=== PATIENT | female | born 1985 | race Caucasian/White ===

== ENCOUNTER 2023-07-11 13:43 | Outpatient (AMB) | payer OTHER, SELFPAY ==
--- NOTE | 2023-07-11 13:48 | MHC.PC.OV ---
Vital Signs 07/11/23 13:55 Weight 182 lb 2 oz BP 98/68 Blood Pressure Location Lt brachial Position Sitting Respiration 12 Pulse 92 Pulse Source Pulse Oximeter Temp 98.5 F Temp Source Oral Pulse Oximetry (%) 96 Oxygen Delivery Method Room Air Intake Visit Reasons: Est Care Intake Note: New patient visit. Called the pharmacy and verified medicaton doses. 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 Allergies tioconazole [From Monistat 1 (tioconazole)] Allergy (Intermediate, Verified 07/11/23 13:49) swelling Monistat 1 Adverse Reaction (Unknown, Uncoded 02/11/18 00:00) worsens sx Medication List - Last Reconciled 07/11/23 by Deanne Jama PA-C bupropion HCl XL (Wellbutrin XL) 300 mg PO QAM lorazepam 0.5 mg PO BID PRN spironolactone 100 mg PO DAILY tretinoin 0.025% 1 appl topical BEDTIME ubrogepant (Ubrelvy) mg PO ONCE Tobacco use date assessed: 07/11/23 Dental Screening Dental Screen Date: 07/11/23 Did you have a dental visit in the last 12 months?: Yes Did you have a dental problem in the last 6 months where you did not have access to dental care?: No Was dental information given to patient?: Patient has dentist HPI Est Care HPI Details Patient is a 38-year-old female who presents today for a follow up/to establish care. She is transferring from [facility] with [facility]. Last seen by myself in April for a physical. labs at that time which were WNL. She has a significant past medical history of generalized anxiety disorder with panic attacks, acne and migraines. Pysch: She feels significantly better on wellbutrin. She states that this has worked much better compared to the Zoloft. She states that she is even lost a couple lb with it. No SI/HI. She states that her anxiety is very well managed. She uses lorazepam 0.5 mg maybe once a month for panic attacks. Neuro: very well controlled with ubrevly. Derm: follows with derm for acne. She is on spironactone and tretinoin. States she is well controlled. 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: [facility] Medical History (Updated 07/11/23 @ 14:41 by Deanne Jama PA-C) Migraines Acne Generalized anxiety disorder with panic attacks Social History Housing: House Patient Tobacco Use Status: Never used Tobacco e-Cigarette/Vaping Use: Never Used Second Hand Smoke Exposure: No service: Yes Current occupation: [employer] Current occupational exposures/hazards: No Cognitive needs: No Hearing needs: No Vision needs: No Questionnaire PHQ-9 Over the last 2 weeks, how often have you been bothered by any of the following problems? 1. Little interest or pleasure in doing things: not at all 2. Feeling down, depressed, or hopeless: not at all 3. Trouble falling or staying asleep, or sleeping too much: several days 4. Feeling tired or having little energy: not at all 5. Poor appetite or overeating: not at all 6. Feeling bad about yourself - or that you are a failure or have let yourself or your family down: not at all 7. Trouble concentrating on things, such as reading the newspaper or watching television: several days 8. Moving or speaking so slowly that other people could have noticed. Or the opposite - being so fidgety or restless that you have been moving around a lot more than usual: not at all 9. Thoughts that you would be better off or of hurting yourself in some way: not at all Total score: 2 Depression Screening Interpretation: Positive Depression Screening Follow-up: Existing condition and In treatment Depression Screening Done: Yes 95025 - PHQ-9 Billing: Yes Source: Developed by Drs. Melchor Ramey, Ria Odell, Leonard Becker and colleagues, with an educational elisa from [employer]. Thrive Questionnaire Date Thrive assessed: 07/11/23 I am a: Patient What is your living situation today?: I have a steady place to live Within the past 12 months, did the food you bought not last and you didn't have the money to get more?: Never true Within the past 12 months, did you worry whether your food would run out before you got money to buy more?: Never true Do you have trouble paying for medicines?: No Do you have trouble getting transportation to medical appointments?: No Do you have trouble paying your heating and electricity bill?: No Do you have trouble taking care of your child, family member or friend?: No Do you have trouble with day-to-day activities such as bathing, preparing meals, shopping, managing finances, etc.?: No Are you currently unemployed and looking for a job?: No Are you interested in more education?: No Please select the resources that you would like help with: None Currently or been in a relationship where the following occur: no concerns reported THRIVE Score: 0 AUDIT C Alcohol Use Questionnaire (AUDIT-C) 1. How often do you have a drink containing alcohol?: Monthly or less 2. How many drinks containing alcohol do you have on a typical day when you are drinking?: 1 or 2 3. How often do you have six or more drinks on one occasion?: Never Total Score: 1 JOAQUIN-7 AMB Questionnaire JOAQUIN-7 Date JOAQUIN - 7 assessed: 07/11/23 Feeling nervous, anxious, or on edge: 1 = Several days Not being able to stop or control worryin = Several days Worrying too much about different things: 1 = Several days Trouble relaxin = Several days Being so restless that it is hard to sit still: 0 = Not at all Becoming easily annoyed or irritable: 0 = Not at all Feeling afraid as if something awful might happen: 0 = Not at all Total JOAQUIN-7 score (0-4 normal; 5-9 mild; 10-14 moderate; 15-21 severe): 4 Source: Developed by Drs. Melchor Ramey, Ria Odell, Leonard Becker and colleagues, with an educational elisa from [employer]. Physical exam (Primary Care) Vital Signs: Last Vital Signs Temp 98.5 F 07/11/23 13:55 Pulse 92 07/11/23 13:55 Resp 12 07/11/23 13:55 BP 98/68 07/11/23 13:55 Pulse Ox 96 07/11/23 13:55 Oxygen Delivery Method Room Air 07/11/23 13:55 Tobacco/Smoking Status: Tobacco use Status Tobacco use date assessed 07/11/23 07/11/23 13:53 Patient Tobacco Use Status Never used Tobacco 07/11/23 13:53 e-Cigarette/Vaping Use Never Used 07/11/23 13:53 PHQ-9: PHQ-9 Score PHQ-9: Total score 2 07/11/23 14:15 Depression Screening Interpretation: Positive Depression Screening Follow-up: Existing condition and In treatment Thrive Assessment: Date of Thrive Assessment Date Thrive assessed 07/11/23 07/11/23 14:01 Currently or been in a relationship where the following occur: no concerns reported Const Orientation/consciousness: patient oriented x3 HENMT Ears: hearing grossly normal bilaterally Neck Thyroid: Thyroid normal Lymphatic: no lymphadenopathy noted Resp Auscultation: clear to auscultation bilaterally Cardio Rate: regular rate Rhythm: regular rhythm Heart sounds: S1 normal heart sound present and S2 normal heart sound present GI Inspection: Yes normal to inspection Palpation (GI): Soft to palpation and Other GI palpation findings present (nontender, no cva tenderness) Auscultation: normoactive bowel sounds Rectal Exam - Female: deferred Skin General skin exam: no rashes or lesions noted Neuro General: patient oriented x3, gait normal and no focal motor deficits Assessment and Plan Assessment & Plan (1) Generalized anxiety disorder with panic attacks: Code(s): F41.1 - Generalized anxiety disorder; F41.0 - Panic disorder [episodic paroxysmal anxiety] Plan: does not need refills today. continue current treatment plan. (2) Acne: Code(s): L70.9 - Acne, unspecified Qualifiers: Acne type: acne vulgaris Qualified Code(s): L70.0 - Acne vulgaris Plan: following with derm (3) Migraines: Code(s): G43.909 - Migraine, unspecified, not intractable, without status migrainosus Qualifiers: Migraine type: unspecified Status migrainosus presence: without status migrainosus Intractability: not intractable Qualified Code(s): G43.909 - Migraine, unspecified, not intractable, without status migrainosus Plan: well managed (4) Encounter to establish care: Code(s): Z76.89 - Persons encountering health services in other specified circumstances Plan: hm reviewed. records requested. Plan f/u 6 months or sooner prn. pt understands and agrees with the plan. Coding Level of Care Code Est Pt Level 4 (23604) Diagnoses Generalized anxiety disorder with panic attacks F41.1; F41.0 Acne vulgaris L70.0 Acne type: acne vulgaris Migraine without status migrainosus, not intractable, unspecified migraine type G43.909 Migraine type: unspecified Status migrainosus presence: without status migrainosus Intractability: not intractable Encounter to establish care Z76.89
[2023-07-11 13:55] VITALS: BP 98/68; PULSE 92; RESP 12; TEMP 36.9; O2SAT 96
== END 2023-07-11 14:37 | disposition home or self-care (01) ==
PROVIDERS: PCP Nurse Practitioner Family; Visit Provider Physician Assistant
DX: F41.1 Generalized anxiety disorder (principal); F41.0 Panic disorder [episodic paroxysmal anxiety]; L70.0 Acne vulgaris; G43.909 Migraine, unspecified, not intractable, without status migrainosus
CPT/HCPCS: 99214

== ENCOUNTER 2024-02-28 13:46 | Outpatient (AMB) | payer OTHER, SELFPAY ==
--- NOTE | 2024-02-28 13:57 | A.OFFPC_ITS ---
Vital Signs 02/28/24 14:01 BP 106/70 Blood Pressure Location Rt brachial Position Sitting Pulse 99 Pulse Source Pulse Oximeter Temp 98.6 F Temp Source Oral Pulse Oximetry (%) 99 Oxygen Delivery Method Room Air Intake Visit Reasons: Headache and weakness Intake Note: Exposed to chemical at work on Sunday and now having sxs. Headache, weakness, rash on face, and confusion. 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 Allergies tioconazole [From Monistat 1 (tioconazole)] Allergy (Intermediate, Verified 02/28/24 13:58) swelling Monistat 1 Adverse Reaction (Unknown, Uncoded 02/28/24 13:58) worsens sx Medication List - Last Reconciled 02/28/24 by Deanne Jama PA-C amoxicillin-pot clavulanate 875-125 mg 1 tab PO BID bupropion HCl XL (Wellbutrin XL) 300 mg PO QAM lorazepam 0.5 mg PO BID PRN 30 days methylprednisolone (Medrol (Zechariah)) PO PER PKG DIR for 6 days spironolactone 100 mg PO DAILY tretinoin 0.025% 1 appl topical BEDTIME ubrogepant (Ubrelvy) 100 mg PO ONCE PRN Tobacco use date assessed: 07/11/23 Dental Screening Dental Screen Date: 07/11/23 HPI Headache and weakness HPI Details Patient is a 38-year-old female who presents today for a follow up. Psych: Anxiety is currently well managed Wellbutrin 300 mg and lorazepam p.r.n.. Neuro: Migraines managed with ubrelvy. She states back in December she was getting a weird odor in her building at work and then ultimately last week they realized there was an issue with gas . She states that this has been triggering a huge increase in her headache. Normally they are well managed but over the last few months they have increased in frequency. HEENT: She states also over the last week or so she has had sinus pain and pressure, especially on the left side. She states that she has been congested nasally and as frequently. No fevers or chills hurts she served pink she can like her ears are filled as well. Derm: Acne managed with spironolactone and tretinoin. 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 Current occupational exposures/hazards: No Cognitive needs: No Hearing needs: No Vision needs: No Questionnaire PHQ-9 Over the last 2 weeks, how often have you been bothered by any of the following problems? 1. Little interest or pleasure in doing things: not at all 2. Feeling down, depressed, or hopeless: not at all 3. Trouble falling or staying asleep, or sleeping too much: several days 4. Feeling tired or having little energy: not at all 5. Poor appetite or overeating: not at all 6. Feeling bad about yourself - or that you are a failure or have let yourself or your family down: not at all 7. Trouble concentrating on things, such as reading the newspaper or watching television: several days 8. Moving or speaking so slowly that other people could have noticed. Or the opposite - being so fidgety or restless that you have been moving around a lot more than usual: not at all 9. Thoughts that you would be better off or of hurting yourself in some way: not at all Total score: 2 Source: Developed by Drs. Melchor Ramey, Ria Odell, Leonard Becker and colleagues, with an educational elisa from [employer]. Thrive Questionnaire Date Thrive assessed: 02/28/24 I am a: Patient What is your living situation today?: I have a steady place to live Within the past 12 months, did the food you bought not last and you didn't have the money to get more?: Never true Within the past 12 months, did you worry whether your food would run out before you got money to buy more?: Never true Do you have trouble paying for medicines?: No Do you have trouble getting transportation to medical appointments?: No Do you have trouble paying your heating and electricity bill?: No Do you have trouble taking care of your child, family member or friend?: No Do you have trouble with day-to-day activities such as bathing, preparing meals, shopping, managing finances, etc.?: No Are you currently unemployed and looking for a job?: No Are you interested in more education?: No Please select the resources that you would like help with: None Currently or been in a relationship where the following occur: No concerns reported THRIVE Score: 0 AUDIT C Alcohol Use Questionnaire (AUDIT-C) 1. How often do you have a drink containing alcohol?: Monthly or less 2. How many drinks containing alcohol do you have on a typical day when you are drinking?: 1 or 2 3. How often do you have six or more drinks on one occasion?: Never Total Score: 1 JOAQUIN-7 AMB Questionnaire JOAQUIN-7 Date JOAQUIN - 7 assessed: 07/11/23 Feeling nervous, anxious, or on edge: 1 = Several days Not being able to stop or control worryin = Several days Worrying too much about different things: 1 = Several days Trouble relaxin = Several days Being so restless that it is hard to sit still: 0 = Not at all Becoming easily annoyed or irritable: 0 = Not at all Feeling afraid as if something awful might happen: 0 = Not at all Total JOAQUIN-7 score (0-4 normal; 5-9 mild; 10-14 moderate; 15-21 severe): 4 Source: Developed by Drs. Melchor Ramey, Ria Odell, Leonard Becker and colleagues, with an educational elisa from [employer]. Physical exam (Primary Care) Vital Signs: Last Vital Signs Temp 98.6 F 02/28/24 14:01 Pulse 99 02/28/24 14:01 BP 106/70 02/28/24 14:01 Pulse Ox 99 02/28/24 14:01 Oxygen Delivery Method Room Air 02/28/24 14:01 Tobacco/Smoking Status: Tobacco use Status Tobacco use date assessed 07/11/23 02/28/24 14:02 Patient Tobacco Use Status Never used Tobacco 02/28/24 14:02 e-Cigarette/Vaping Use Never Used 02/28/24 14:02 PHQ-9: PHQ-9 Score PHQ-9: Total score 2 02/28/24 14:02 Thrive Assessment: Date of Thrive Assessment Date Thrive assessed 02/28/24 02/28/24 14:02 Currently or been in a relationship where the following occur: No concerns reported Const Orientation/consciousness: patient oriented x3 HENMT Other: TMs dome-shaped a small air-fluid levels bilaterally. Nasal mucosa erythematous and edematous. There is maxillary sinus tenderness present. Ears: hearing grossly normal bilaterally Neck Thyroid: Thyroid normal Lymphatic: no lymphadenopathy noted Resp Auscultation: clear to auscultation bilaterally Cardio Rate: regular rate Rhythm: regular rhythm Heart sounds: S1 normal heart sound present and S2 normal heart sound present GI Inspection: Yes normal to inspection Palpation (GI): Soft to palpation and Other GI palpation findings present (nontender, no cva tenderness) Auscultation: normoactive bowel sounds Rectal Exam - Female: deferred Skin General skin exam: no rashes or lesions noted Neuro General: patient oriented x3, gait normal and no focal motor deficits Coding Level of Care Code Est Pt Level 4 (44244) Complex EM visit Add On G2211 Diagnoses Migraine without status migrainosus, not intractable, unspecified migraine type G43.909 Migraine type: unspecified Status migrainosus presence: without status migrainosus Intractability: not intractable Bacterial sinusitis J32.9; B96.89 Assessment & Plan Assessment & Plan (1) Migraines: Code(s): G43.909 - Migraine, unspecified, not intractable, without status migrainosus Category: Medical Qualifiers: Migraine type: unspecified Status migrainosus presence: without status migrainosus Intractability: not intractable Qualified Code(s): G43.909 - Migraine, unspecified, not intractable, without status migrainosus Plan: Work go provided as she does have many environmental triggers of her migraines. She will work remote twice a week to see if this helps. Her job does have a remote option. (2) Bacterial sinusitis: Code(s): J32.9 - Chronic sinusitis, unspecified; B96.89 - Other specified bacterial agents as the cause of diseases classified elsewhere Category: Medical Plan: We will start on Augmentin and a Medrol Dosepak. Discussed risks and benefits and adverse effects of this medication. Plan Labs ordered. Follow up short term. Sooner if needed. Patient understands and agrees with the plan. Orders: Orders TSH reflex Free T4 Today B96.89 - Other specified bacterial agents as the cause of diseases classified elsewhere, G43.909 - Migraine, unspecified, not intractable, without status migrainosus, J32.9 - Chronic sinusitis, unspecified Lipid Panel Today B96.89 - Other specified bacterial agents as the cause of diseases classified elsewhere, G43.909 - Migraine, unspecified, not intractable, without status migrainosus, J32.9 - Chronic sinusitis, unspecified Complete Blood Count Auto Diff Today B96.89 - Other specified bacterial agents as the cause of diseases classified elsewhere, G43.909 - Migraine, unspecified, not intractable, without status migrainosus, J32.9 - Chronic sinusitis, un specified Comprehensive [place]. Panel Fast Today B96.89 - Other specified bacterial agents as the cause of diseases classified elsewhere, G43.909 - Migraine, unspecified, not intractable, without status migrainosus, J32.9 - Chronic sinusitis, unspecified Medications: New methylprednisolone (Medrol (Zechariah)) PO PER PKG DIR for 6 days 21 ea 0RF amoxicillin-pot clavulanate 875-125 mg 1 tab PO BID 20 tabs 0RF
[2024-02-28 14:01] VITALS: BP 106/70; PULSE 99; TEMP 37; O2SAT 99
--- OUTSIDE RECORDS SUMMARY | 2024-03-05 02:41 | XMS_ITS ---
Author Name [facility] Organization Unknown History of Medication Use Medication Directions Dispensed Refills Start Date End Date Stat us LORazepam (ATIVAN) 0.5 MG tablet Take 0.5 mg by mouth 3 (three) times a day as needed. anxiety 06/20/2022 active Ubrelvy 100 MG tablet 06/20/2022 active spironolactone (ALDACTONE) 50 MG tablet Take 50 mg by mouth daily. 06/20/2022 active LORazepam (ATIVAN) 0.5 MG tablet Take 0.5 mg by mouth 3 (three) times a day as needed. anxiety 06/20/2022 active sertraline (ZOLOFT) 50 MG tablet Take 50 mg by mouth daily. 06/20/2022 active doxycycline (MONODOX) 100 MG capsule Take 1 capsule (100 mg total) by mouth 2 (two) times a day. 06/20/2022 active ketoconazole (NIZORAL) 2 % shampoo APPLY 2-3 TIMES WEEKLY 06/20/2022 active Problems Problem Status Onset Date Problem Type Date of Resoluti on Source Bacterial sinusitis [facility]
== END 2024-02-28 16:48 | disposition home or self-care (01) ==
PROVIDERS: PCP Nurse Practitioner Family; Visit Provider Physician Assistant
DX: G43.909 Migraine, unspecified, not intractable, without status migrainosus (principal); J32.9 Chronic sinusitis, unspecified; B96.89 Other specified bacterial agents as the cause of diseases classified elsewhere

== ENCOUNTER → 2024-02-28 13:46 | Outpatient (BNVA) | payer OTHER, SELFPAY | PROVIDERS: PCP Nurse Practitioner Family; Visit Provider Physician Assistant ==

== ENCOUNTER 2024-02-29 10:24 | Outpatient (REF) | payer OTHER, SELFPAY ==
[2024-02-29 17:48] LABS: MANUAL DIFF FLAG NO
[2024-02-29 17:52] LABS: Basophils Absolute Auto 0.1 X10*3/uL (0.0-0.2); Basophils Percent Auto 0.9 % (0-2); Eosinophils Absolute Auto 0.1 X10*3/uL (0.0-0.4); Eosinophils Percent Auto 0.9 % (0-4); Hematocrit 43.4 % (37.0-47.0); Hemoglobin 14.9 g/dl (12.0-16.0); Imm Gran Abs Auto 0.02 X10*3/uL (0.00-0.03); Imm Gran Pct Auto 0.2 % (0.0-0.4); Lymphocytes Absolute Auto 2.5 X10*3/uL (1.2-4.9); Mean Corpuscular HGB Conc 34.3 g/dl (31.0-35.0); Mean Corpuscular Hemoglobin 31.4 pg (27.0-33.0); Mean Corpuscular Volume 91.6 fL (80.0-98.0); Mean Platelet Volume 9.6 fL (9.4-12.3); Monocytes Absolute Auto 0.3 X10*3/uL (0.1-1.2); Monocytes Percent Auto 3.3 % (2-11); Neutrophils Absolute Auto 5.4 x10*3/uL (2.0-8.3); Neutrophils Percent Auto 64.7 % (45-73); Platelet Count 354 X10*3/uL (160-400); Red Blood Count 4.74 X10*6/uL (4.20-5.50); Red Cell Distribution Width 11.9 % (11.0-16.0); White Blood Count 8.4 X10*3/uL (4.8-10.8)
[2024-02-29 18:14] LABS: Alanine Aminotransferase 22 U/L (0-31); Albumin Level 4.5 g/dL (3.5-5.0); Alkaline Phosphatase 54 U/L (39-117); Anion Gap 12 (12-20); Aspartate Amino Transferase 18 U/L (5-31); Bilirubin Total 0.4 mg/dL (0.0-1.0); Blood Urea Nitrogen 11 mg/dL (9-16); Calcium 9.5 mg/dL (8.4-10.2); Carbon Dioxide 27 mmol/L (22-29); Chloride 107 mmol/L (96-108); Cholesterol 159 mg/dL (<200); Estimated Glomerular Filt Rate > 60; Glucose Fasting 86 mg/dL (60-99); HDL Cholesterol 48 mg/dL (>40); LDL Cholesterol Calculated 94 mg/dL (<100); Potassium 3.6 mmol/L (3.3-5.1); Sodium 142 mmol/L (135-145); Total Protein 7.3 g/dL (6.5-8.0); Triglycerides 85 mg/dL (<150)
[2024-02-29 18:30] LABS: TSH reflex Free T4 1.43 uIU/mL (0.32-4.0)
== END 2024-02-29 10:25 | disposition home or self-care (01) ==
LOC: HO.WFDLDS 10:24
PROVIDERS: Visit Provider Physician Assistant
DX: G43.909 Migraine, unspecified, not intractable, without status migrainosus (principal); J32.9 Chronic sinusitis, unspecified; B96.89 Other specified bacterial agents as the cause of diseases classified elsewhere
CPT/HCPCS: 36415; 80053; 80061; 84443; 85025

== ENCOUNTER → 2024-04-30 07:51 | Outpatient (BNVA) | payer OTHER, SELFPAY | PROVIDERS: PCP Physician Assistant; Visit Provider Physician Assistant | DX: Z00.00 Encounter for general adult medical examination without abnormal findings (principal); G43.909 Migraine, unspecified, not intractable, without status migrainosus; F41.1 Generalized anxiety disorder; F41.0 Panic disorder [episodic paroxysmal anxiety] | CPT/HCPCS: 96127 ==

== ENCOUNTER 2024-10-15 14:48 | Outpatient (AMB) | payer OTHER, SELFPAY ==
--- NOTE | 2024-10-15 14:57 | A.OFFPC_ITS ---
Vital Signs 10/15/24 15:01 Height 5 ft 4 in Weight 129 lb BMI 22.1 BP 98/64 Blood Pressure Location Rt brachial Position Sitting Respiration 12 Pulse 87 Pulse Source Pulse Oximeter Temp 98.8 F Temp Source Oral Pulse Oximetry (%) 99 Oxygen Delivery Method Room Air Intake Visit Reasons: medcinie review Intake Note: Medication follow. Still having headaches and congestion due to HVAC at work Physician/Internist Required: No Allergies tioconazole (From Monistat 1 (tioconazole)) Allergy (Intermediate, Verified 04/30/24 08:09) swelling Monistat 1 Adverse Reaction (Unknown, Uncoded 04/30/24 08:09) worsens sx Medication List - Last Reconciled 10/15/24 by Deanne Jama PA-C amoxicillin-pot clavulanate 875-125 mg 1 tab PO Q12H bupropion HCl XL (Wellbutrin XL) 300 mg PO QAM fluconazole 150 mg PO Q3D 2 doses lorazepam 0.5 mg PO BID PRN 30 days minoxidil mg PO semaglutide (weight loss) 0.15 mg subcut QWEEK spironolactone 100 mg PO DAILY tretinoin 0.025% 1 appl topical BEDTIME triamcinolone acetonide (Nasacort) 2 sprays intranasal DAILY ubrogepant (Ubrelvy) 100 mg PO ONCE PRN Tobacco use date assessed: 07/11/23 Dental Screening Dental Screen Date: 07/11/23 HPI medcinie review HPI Details Patient is a 39-year-old female who presents today for a f/u. She has a significant past medical history of generalized anxiety disorder with panic attacks, acne and migraines HEENT: She is experiencing frequent sinus infections since working in this building. She says that they keep having issues with ventilation, hvac, and just overall structural issues that she thinks she is very sensitive to. She states there keeps being gas leaks intermittently and whenever this happens her sinuses get flared up and she gets headaches. She has had about 4 this year. She states that almost every day when she goes into the office she has sinus congestion and nasal congestion and when she gets home the symptoms resolve. She says for the last 2 weeks however she has had constant sinus pain and pressure. She states it is not getting better despite being on Flonase. General: she is on wegovy through a compound pharmacy through [employer] [facility] [employer]. she has lost 40 lbs in the past year. Pysch: She feels significantly better on wellbutrin. She states that this has worked much better compared to the Zoloft. No SI/HI. She states that her anxi ety is very well managed. She uses lorazepam 0.5 mg maybe once a month for panic attacks. Neuro: controlled with ubrevly. new work schedule is better for her being able to work remote twice a week to help limit the exposure to the environmental allergens Derm: follows with derm for acne. She is on spironactone and tretinoin. States she is well controlled. 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 [facility] Medical History (Updated 10/15/24 @ 15:10 by Deanne Jama PA-C) Migraines Acne Generalized anxiety disorder with panic attacks Social History Housing: House Patient Tobacco Use Status: Never used Tobacco e-Cigarette/Vaping Use: Never Used Second Hand Smoke Exposure: No service: Yes Current occupation: [employer] Current occupational exposures/hazards: No Cognitive needs: No Hearing needs: No Vision needs: No Questionnaire Thrive Questionnaire Date Thrive assessed: 04/23/24 I am a: Patient What is your living situation today?: I have a steady place to live Within the past 12 months, did the food you bought not last and you didn't have the money to get more?: Never true Within the past 12 months, did you worry whether your food would run out before you got money to buy more?: Never true Do you have trouble paying for medicines?: No Do you have trouble getting transportation to medical appointments?: No Do you have trouble paying your heating and electricity bill?: No Do you have trouble taking care of your child, family member or friend?: No Do you have trouble with day-to-day activities such as bathing, preparing meals, shopping, managing finances, etc.?: No Are you currently unemployed and looking for a job?: No Are you interested in more education?: No Please select the resources that you would like help with: None Currently or been in a relationship where the following occur: No concerns reported THRIVE Score: 0 JOAQUIN-7 AMB Questionnaire JOAQUIN-7 Date JOAQUIN - 7 assessed: 07/11/23 Source: Developed by Drs. Melchor Ramey, Ria Odell, Leonard Becker and colleagues, with an educational elisa from [employer]. Physical exam (Primary Care) Tobacco/Smoking Status: Tobacco use Status Tobacco use date assessed 07/11/23 04/30/24 08:11 Patient Tobacco Use Status Never used Tobacco 04/30/24 08:11 e-Cigarette/Vaping Use Never Used 04/30/24 08:11 Thrive Assessment: Date of Thrive Assessment Date Thrive assessed 04/23/24 04/30/24 08:11 Currently or been in a relationship where the following occur: No concerns reported Const Orientation/consciousness: patient oriented x3 HENMT Other: TMs noted to have small air-fluid levels bilaterally. Negative tug test bilaterally. Nasal mucosa erythematous and edematous. Purulent drainage noted. Maxillary sinus tenderness present. Ears: hearing grossly normal bilaterally Neck Thyroid: Thyroid normal Lymphatic: no lymphadenopathy noted Resp Auscultation: clear to auscultation bilaterally Cardio Rate: regular rate Rhythm: regular rhythm Heart sounds: S1 normal heart sound present and S2 normal heart sound present GI Inspection: Yes normal to inspection Palpation (GI): Soft to palpation and Other GI palpation findings present (nontender, no cva tenderness) Auscultation: normoactive bowel sounds Rectal Exam - Female: deferred Skin General skin exam: no rashes or lesions noted Neuro General: patient oriented x3, gait normal and no focal motor deficits Results Reviewed Results Reviewed: Laboratory Tests 02/29/24 13:23 WBC 8.4 RBC 4.74 Hgb 14.9 Hct 43.4 Plt Count 354 Sodium 142 Potassium 3.6 Chloride 107 Carbon Dioxide 27 Anion Gap 12 BUN 11 Creatinine 0.78 Estimated GFR > 60 Fasting Glucose 86 Calcium 9.5 Total Bilirubin 0.4 AST 18 ALT 22 Alkaline Phosphatase 54 Total Protein 7.3 Albumin 4.5 Triglycerides 85 Cholesterol 159 LDL Cholesterol, Calc 94 HDL Cholesterol 48 TSH 1.43 Coding Level of Care Code Est Pt Level 4 (64136) Complex EM visit Add On G2211 Diagnoses Generalized anxiety disorder with panic attacks F41.1; F41.0 Migraine without status migrainosus, not intractable, unspecified migraine type G43.909 Migraine type: unspecified Status migrainosus presence: without status migrainosus Intractability: not intractable Recurrent sinusitis J32.9 Assessment & Plan Assessment & Plan (1) Generalized anxiety disorder with panic attacks: Code(s): F41.1 - Generalized anxiety disorder; F41.0 - Panic disorder [episodic paroxysmal anxiety] Category: Medical Plan: Continue current regimen (2) Migraines: Code(s): G43.909 - Migraine, unspecified, not intractable, without status migrainosus Category: Medical Qualifiers: Migraine type: unspecified Status migrainosus presence: without status migrainosus Intractability: not intractable Qualified Code(s): G43.909 - Migraine, unspecified, not intractable, without status migrainosus Plan: As above. Work letter updated (3) Recurrent sinusitis: Code(s): J32.9 - Chronic sinusitis, unspecified Category: Medical Plan: Referral to Allergy and immunology. We will try Nasacort Does not tolerate most antihistamines as it induces anxiety. We will treat with Augmentin. Orders: Referrals Allergy & Immunology Referral J32.9 - Chronic sinusitis, unspecified Medications: New triamcinolone acetonide (Nasacort) administer into each nostril 2 sprays intranasal DAILY 16.9 mL 2RF amoxicillin-pot clavulanate 875-125 mg 1 tab PO Q12H 20 tabs 0RF Refilled fluconazole 150 mg PO Q3D 2 tabs 0RF 2 doses lorazepam 0.5 mg PO BID PRN 30 tabs 0RF anxiety 30 days
[2024-10-15 15:01] VITALS: BP 98/64; PULSE 87; RESP 12; TEMP 37.1; O2SAT 99; BMI 22.1
--- OUTSIDE RECORDS SUMMARY | 2024-10-15 15:23 | XMS_ITS ---
Author Name [facility] Organization Unknown History of Medication Use Medication Directions Dispensed Refills Start Date End Date Stat us nystatin (MYCOSTATIN) 150400 UNIT/ML suspension Take 5 mL (500,000 Units total) by mouth 4 (four) times a day. 07/19/2024 active buPROPion (WELLBUTRIN XL) 300 MG 24 hr tablet Take 300 mg by mouth every morning. 07/07/2024 active sertraline (ZOLOFT) 50 MG tablet Take 50 mg by mouth daily. 06/02/2022 active ketoconazole (NIZORAL) 2 % shampoo APPLY 2-3 TIMES WEEKLY 03/28/2022 active spironolactone (ALDACTONE) 50 MG tablet Take 50 mg by mouth daily. 03/28/2022 active semaglutide (OZEMPIC) (0.25 or 0.5 mg/dose pen) prefilled pen injection Inject under the skin once a week. active Allergies Allergen Reaction Severity Comment Documented Date Source Statu s MICONAZOLE HIVES 06/19/2022 [facility] active Problems Problem Status Onset Date Problem Type Date of Resoluti on Source Chronic sinusitis active 2024-07-19 ProblemAct [facility] Class 1 obesity active 2024-07-19 ProblemAct [facility] Sore throat active EncounterDiagnosisAct [facility] Anxiety active 2024-07-19 ProblemAct [facility] Migraine headache active 2024-07-19 ProblemAct [facility] History of MRSA infection active 2024-07-19 ProblemAct [facility] Oral thrush active EncounterDiagnosisAct [facility] Cold sore active 2024-07-19 ProblemAct [facility] Encounters Encounter Type Encounter Reason Primary Diagnosis Location Date Ambulatory Acute pharyngitis, unspecified Acute pharyngitis, unspecified [facility] 07/19/2024 Ambulatory Chronic sinusiti s, unspecified [facility] 06/19/2022 Care Team Organization Name Specialty Phone Email Start Date End Da te [facility] NO PCP Primary Care 07/19/2024 [facility] 06/19/2022 08/18/2024 [facility] 06/19/2022 06/19/2022
--- OUTSIDE RECORDS SUMMARY | 2024-10-15 15:23 | XMS_ITS | Encounter Summary ---
Author Organization [facility] Address [address] [place] [address] Care Team Providers Care Production Solderer Name Role Phone Pcp, No Primary Care Provider Unavailabl e Encounter Details Date Type Department Care Team (Late st Contact Info) Description 07/19/2024 Scanned Document [facility] [address] [facility] [address] [place] [id number] Provider, Generic Social History Tobacco Use Types Packs/Day Years Used Date Smoking Tobacco: Never Smokeless Tobacco: Never Alcohol Use Standard Drinks/Week Comments Not Currently 0 (1 standard drink = 0.6 oz pur e alcohol) Comments Unknown Sex and Gender Information Value Date Recorded Sex Assigned at Not on file Legal Sex Female 8:54 AM EDT Gender Identity Not on file Sexual Orientation Not on file documented as of this encounter Plan of Treatment Not on file documented as of this encounter Visit Diagnoses Not on filedocumented in this encounter Care Teams Production Solderer Relationship Specialty Start Date End Date Pcp, No PCP - General General Medicine 07/19/24 documented as of this encounter
== END 2024-10-15 15:19 | disposition home or self-care (01) ==
LOC: HO.HMCFM 14:49
PROVIDERS: PCP Physician Assistant; Visit Provider Physician Assistant
DX: F41.1 Generalized anxiety disorder (principal); F41.0 Panic disorder [episodic paroxysmal anxiety]; G43.909 Migraine, unspecified, not intractable, without status migrainosus; J32.9 Chronic sinusitis, unspecified

== ENCOUNTER 2025-03-11 10:48 | Outpatient (REF) | payer OTHER, SELFPAY ==
[2025-03-11 15:30] LABS: MANUAL DIFF FLAG NO
[2025-03-11 15:34] LABS: Hematocrit 44.5 % (37.0-47.0); Hemoglobin 15.3 g/dl (12.0-16.0); Imm Gran Abs Auto 0.02 X10*3/uL (0.00-0.03); Imm Gran Pct Auto 0.2 % (0.0-0.4); Lymphocytes Absolute Auto 2.5 X10*3/uL (1.2-4.9); Mean Corpuscular HGB Conc 34.4 g/dl (31.0-35.0); Mean Corpuscular Hemoglobin 31.7 pg (27.0-33.0); Mean Corpuscular Volume 92.1 fL (80.0-98.0); NRBC Abs Auto 0.000 X10*3/uL (0.0-0.012); NRBC Pct Auto 0.0 /100WBC (0.0-0.2); Platelet Count 369 X10*3/uL (160-400); Red Blood Count 4.83 X10*6/uL (4.20-5.50); White Blood Count 8.4 X10*3/uL (4.8-10.8)
[2025-03-11 15:56] LABS: Alanine Aminotransferase 23 U/L (0-31); Albumin Level 4.7 g/dL (3.5-5.0); Alkaline Phosphatase 55 U/L (39-117); Anion Gap 10 (12-20); Aspartate Amino Transferase 22 U/L (5-31); Blood Urea Nitrogen 10 mg/dL (9-16); Calcium 9.3 mg/dL (8.4-10.2); Carbon Dioxide 26 mmol/L (22-29); Chloride 105 mmol/L (96-108); Cholesterol 178 mg/dL (<200); Estimated Glomerular Filt Rate > 60; HDL Cholesterol 58 mg/dL (>40); Potassium 4.0 mmol/L (3.3-5.1); Sodium 137 mmol/L (135-145); Total Protein 7.6 g/dL (6.5-8.0); Triglycerides 75 mg/dL (<150)
== END 2025-03-11 10:49 | disposition home or self-care (01) ==
LOC: HO.WFDLDS 10:48
PROVIDERS: PCP Physician Assistant; Visit Provider Physician Assistant
DX: Z00.00 Encounter for general adult medical examination without abnormal findings (principal); Z77.29 Contact with and (suspected) exposure to other hazardous substances; F41.1 Generalized anxiety disorder; F41.0 Panic disorder [episodic paroxysmal anxiety]; J32.9 Chronic sinusitis, unspecified
CPT/HCPCS: 36415; 80053; 80061; 84443; 85025

== ENCOUNTER 2025-03-11 10:48 | Outpatient (AMB) | payer OTHER, SELFPAY ==
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
[2025-03-11 10:56] VITALS: BP 92/64; PULSE 111; RESP 14; O2SAT 100; BMI 22.1
--- OUTSIDE RECORDS SUMMARY | 2025-03-11 13:59 | XMS_ITS | Encounter Summary ---
Author Organization [facility] Address [address] [place] [address] Care Team Providers Care Assembly Mechanic Name Role Phone Pcp, No Primary Care Provider Unavailabl e Encounter Details Date Type Department Care Team (Late st Contact Info) Description 07/19/2024 Scanned Document [facility] 80 [facility] [address] [place] [phone] Provider, Generic Social History Tobacco Use [...] on filedocumented in this encounter Care Teams Assembly Mechanic Relationship Specialty Start Date End Date Pcp, No PCP - General General Medicine 07/19/24 documented as of this encounter
--- OUTSIDE RECORDS SUMMARY | 2025-03-11 13:59 | XMS_ITS | Clinical Summary ---
Author Organization [facility] Address [address] [place] [address] Care Team Providers Care Diesel Plant Operator Name Role Phone Pcp, No Primary Care Provider Unavailabl e Allergies Active Allergy Reactions Criticality Noted Date Comments Miconazole Hives Medium 06/19/2022 Medications Ubrelvy 100 MG tablet 06/15/2022 Active spironolactone (ALDACTONE) 50 MG tablet Take 50 mg by mouth daily. 03/28/2022 Active LORazepam (ATIVAN) 0.5 MG tablet Take 0.5 mg by mouth 3 (three) times a day as needed. anxiety 03/24/2022 Active ketoconazole (NIZORAL) 2 % shampoo APPLY 2-3 TIMES WEEKLY 03/28/2022 Active buPROPion (WELLBUTRIN XL) 300 MG 24 hr tablet Take 300 mg by mouth every morning. 07/07/2024 Active semaglutide (OZEMPIC) (0.25 or 0.5 mg/dose pen) prefilled pen injection Inject under the skin once a week. Active nystatin (MYCOSTATIN) 311701 UNIT/ML suspensionIndic ations:Oral thrush Take 5 mL (500,000 Units total) by mouth 4 (four) times a day. 140 mL 07/19/2024 Active Active Problems Problem Noted Date Diagnosed Date Anxiety 07/19/2024 Chronic sinusitis 07/19/2024 Class 1 obesity 07/19/2024 Cold sore 07/19/2024 History of MRSA infection 07/19/2024 Migraine headache 07/19/2024 Social History Tobacco Use Types Packs/Day Years Used Date Smoking Tobacco: Never Smokeless Tobacco: Never Alcohol Use Standard Drinks/Week Comments Not Currently 0 (1 standard drink = 0.6 oz pur e alcohol) Comments Unknown Sex and Gender Information Value Date Recorded Sex Assigned at Not on file Legal Sex Female 8:54 AM EDT Gender Identity Not on file Sexual Orientation Not on file Last Filed Vital Signs Vital Sign Reading Time Taken Comments Blood Pressure 100/70 07/19/2024 9:33 AM EDT Pulse 89 07/19/2024 9:33 AM EDT Temperature 36.9 C (98.5 F) 07/19/2024 9:33 AM EDT Respiratory Rate 16 07/19/2024 9:33 AM EDT Oxygen Saturation 100% 07/19/2024 9:33 AM EDT Inhaled Oxygen Concentration - - Weight 79.4 kg (175 lb) 07/19/2024 9:33 AM EDT Height 162.6 cm (5' 4 ) 07/19/2024 9:33 AM EDT Body Mass Index 30.04 07/19/2024 9:33 AM EDT Plan of Treatment Health Maintenance Due Date Last Done Comments Hepatitis C Virus Screening 1983 HIV Screening 06/05/1996 DTaP/Tdap/Td Vaccines (1 - Tdap) 06/05/2002 Hepatitis B Vaccines (1 of 3 - 19+ 3-dose series) 06/05/2002 Pap Smear (Ages 21-65) 06/05/2004 Mammogram 2023 Influenza Vaccine 10/24/2024 COVID-19 Vaccine (2 - 2024-2 6 season) 2024 07/23/2020 HPV Vaccines (No Doses Required) Completed Pneumococcal Vaccine: Pediat osorio (0-5 Years) and At-Risk Patients (6 to 49 Years) Aged Out No longer eligible b ased on patient's age to complete this topic Insurance [facility] Care Teams Diesel Plant Operator Relationship Specialty Start Date End Date Pcp, No PCP - General General Medicine 07/19/24
== END 2025-03-11 11:27 | disposition home or self-care (01) ==
LOC: HO.HMCFM 10:48
PROVIDERS: PCP Physician Assistant; Visit Provider Physician Assistant
DX: F41.1 Generalized anxiety disorder (principal); F41.0 Panic disorder [episodic paroxysmal anxiety]; J32.9 Chronic sinusitis, unspecified